=== PATIENT | female | born 1970 | race Caucasian/White ===

== ENCOUNTER 2022-03-21 20:31 | Emergency (ER) | payer MEDICARE, OTHER ==
[2022-03-21 22:13] LABS: HEMOGLOBIN 12.6 gm/dl (12.3-15.3); RED BLOOD COUNT 4.86 M/UL (4.00-5.10); WHITE BLOOD COUNT 12.7 K/UL (4.5-11.0)
[2022-03-21 22:19] LABS: BUN/CREATININE RATIO 12 (0-10)
[2022-03-22] MEDS ORDERED: MACROBID 100 M100 M1 PO (03:26)
[2022-03-22] MEDS ORDERED: ZOFRAN 4 MG TAB4 MG PO (03:26)
== END 2022-03-22 03:43 | disposition home or self-care (01) ==
LOC: ER1 20:31
PROVIDERS: Physician Assistant Medical
DX: R10.84 Generalized abdominal pain (principal); R11.0 Nausea; Z88.0 Allergy status to penicillin
CPT/HCPCS: 80053; 81001; 83690; 85025; 99284